=== PATIENT | female | born 1950 | race Asian ===

== ENCOUNTER 2017-11-19 22:13 | Emergency (ER) | payer BC ==
[~2017-11-19] VITALS: Ht 152.4 cm; Wt 56.8 kg
[2017-11-19] MEDS ORDERED: LISI-660 PO (22:31)
[2017-11-19] MEDS ORDERED: ASPI-1182 PO (22:31)
[2017-11-19] MEDS ORDERED: GLYB5 PO ×2 (22:31)
[2017-11-19] MEDS ORDERED: VITA400C70 PO (22:31)
[2017-11-19] MEDS ORDERED: INSLAN SQ (22:31)
[2017-11-19] MEDS ORDERED: LIRA0.6P SQ (22:31)
[2017-11-19] MEDS ORDERED: ATOR10TA84 PO (22:31)
[2017-11-19] MEDS ORDERED: METF-960 PO (22:31)
[2017-11-19] MEDS ORDERED: INSU100V SQ (22:31)
[2017-11-19] MEDS ORDERED: SODIUM CHLORIDE 0.9% 1,000 ML IV ONE (23:00)
[2017-11-19] MEDS ORDERED: PB/HYOSCY/ATR/SCOP/LIDO/MAALOX 55 ML BOTTLE PO ONE (23:00)
[2017-11-19] MEDS ORDERED: ONDANSETRON HCL 4 MG/2 ML VIAL IVP ONE (23:00)
[2017-11-19 23:12] LABS: HEMATOCRIT 42.4 % (36-46); HEMOGLOBIN 14.8 g/dL (12.0-16.0); MEAN CORPUSCULAR HEMOGLOBIN 29.7 pg (26.0-34.0); MEAN CORPUSCULAR VOLUME 85 fL (80-100); PLATELET COUNT (AUTO) 196 K/uL (150-450); RED CELL DISTRIBUTION WIDTH 14.3 % (11.5-14.5)
[2017-11-19 23:42] LABS: BAND NEUTROPHILS % (MANUAL) 34 % (0-5); EOSINOPHILS % (MANUAL) 3 % (1-6); LYMPHOCYTES % (MANUAL) 4 % (22-44); MONOCYTES % (MANUAL) 5 % (2-9); SEGMENTED NEUTROPHILS % 54 % (40-70)
[2017-11-19 23:54] LABS: GLUCOSE,POINT OF CARE 117 MG/DL (70-110)
[2017-11-20 00:05] LABS: ANION GAP 7 mmol/L (8-16); CARBON DIOXIDE 30 mmol/L (22-29); CHLORIDE 105 mmol/L (98-107); CREATININE 0.86 mg/dL (0.60-1.30); GLOMERULAR FILTR. RATE CALC > 60 mL/min (>60); GLUCOSE,RANDOM 112 mg/dL (70-110); POTASSIUM 3.8 mmol/L (3.5-5.1); SODIUM SERUM 142 mmol/L (136-145); UREA NITROGEN, BLOOD 15 mg/dL (7-18)
[2017-11-20 00:12] LABS: ALANINE AMINOTRANSFERASE 21 U/L (12-78); ALBUMIN 3.7 g/dL (3.4-5.0); ALKALINE PHOSPHATASE 63 U/L (46-116); ASPARTATE AMINOTRANSFERASE 13 U/L (15-37); BILIRUBIN,TOTAL 0.3 mg/dL (0.1-1.0); LIPASE 219 U/L (73-393); TOTAL PROTEIN, SERUM 7.7 g/dL (6.4-8.2)
[2017-11-20 01:19] VITALS: BP 113/77
[2017-11-20 01:24] LABS: GLUCOSE,POINT OF CARE 106 MG/DL (70-110)
== END 2017-11-20 02:01 | disposition home or self-care (01) ==
LOC: EMS 22:15
DX: E11.649 Type 2 diabetes mellitus with hypoglycemia without coma (principal); R10.13 Epigastric pain; R11.2 Nausea with vomiting, unspecified; R19.7 Diarrhea, unspecified; E78.00 Pure hypercholesterolemia, unspecified; I10 Essential (primary) hypertension; Z90.710 Acquired absence of both cervix and uterus; Z90.49 Acquired absence of other specified parts of digestive tract; Z79.4 Long term (current) use of insulin; Z79.84 Long term (current) use of oral hypoglycemic drugs; Z79.899 Other long term (current) drug therapy
CPT/HCPCS: 36415; 80053; 82948 ×2; 82962; 83690; 84484; 85025; 93005; 96361; 96374; 99285; J2405; J7030; Z7610

== ENCOUNTER → 2023-10-23 | Outpatient (CLI) | payer MEDICARE ==
[~2023-10-23] MED LIST: ASPI-1444 PO; ATOR10TA PO; GLYB-145 PO; INSLAN SQ; INSU100V SQ; LIRA0.6P SQ; LISI-892 PO; METF-1211 PO; VITA400C70 PO
== END | disposition home or self-care (01) ==
LOC: RADMN 16:01
PROVIDERS: ATTEND Internal Medicine Geriatric Medicine
DX: M65.30 Trigger finger, unspecified finger (principal)
CPT/HCPCS: 73130-TC